=== PATIENT | female | born 2000 | race Caucasian/White ===

== ENCOUNTER 2023-06-06 10:38 | Inpatient (IN) ==
[2023-06-06 11:57] LABS: ABS Basophils 0.1 10^3/uL (0.0-0.1); ABS Eosinophils 0.2 10^3/uL (0.0-0.5); ABS Lymphocytes 2.5 10^3/uL (1.0-4.8); ABS Monocytes 0.5 10^3/uL (0.0-0.9); ABS Neutrophils 3.9 10^3/uL (1.5-7.6); ABS Nucleated RBC 0.02 10^3/ul; Eosinophil % 2.2 %; Hematocrit 43.9 % (35-45); Hemoglobin 15.2 g/dL (11.5-14.3); Mean Corpuscular Hemoglobin 30.3 pg (27-33); Mean Corpuscular Hgb Conc 34.5 g/dL (31-36); Mean Corpuscular Volume 87.6 fL (80-97); Mean Platelet Volume 9.5 fL (7.5-11.2); Nucleated Red Blood Cells % 0.3 %/100WBC (0.0-0.8); Platelet Count 289 10^3/uL (150-450); Red Blood Count 5.01 10^6/uL (3.63-4.92); Red Cell Distribution Width 12.8 % (12-17); White Blood Count 7.3 10^3/uL (3.8-11.8)
[2023-06-06 12:13] LABS: Albumin 4.5 g/dL (3.2-5.2); Albumin/Globulin Ratio 1.7 (1-3); Calcium 9.4 mg/dL (8.6-10.3); Creatinine, Serum 0.66 mg/dL (0.51-0.95); Globulin 2.7 g/dL (2-4); Potassium 4.2 mmol/L (3.5-5.0); Total Bilirubin 0.3 mg/dL (0.2-1.0); Total Protein 7.2 g/dL (6.4-8.9); eGFR CKD-EPI 127.1 (>60)
[2023-06-06 12:37] LABS: Urine Benzodiazepine Screen None Detected (None Detect); Urine Cannabinoids Screen Presumptive Positive (None Detect); Urine Opiates Screen None Detected (None Detect)
[2023-06-06 12:58] LABS: TSH Ultra Thyroid Stim Horm 2.67 mcIU/mL (0.34-5.60)
[2023-06-06] MEDS ORDERED: Al Hydrox/Mg Hydrox/Simet LIQ 30 ML UDC PO PRN (15:41)
[2023-06-06] MEDS ORDERED: DESVENLAFAXINE 50 MG PO SCH (21:00)
[2023-06-07 08:15] LABS: HDL Cholesterol 57.2 mg/dL
[2023-06-07] MEDS ORDERED: Influenza vaccine *QUAD* *2023-24* 0.5 ML SYRINGE IM ONE (09:00)
[2023-06-07] MEDS: Vitamin THERAPEUTIC TAB PO SCH (10:57)
[2023-06-07] MEDS: DESVENLAFAXINE 50 MG PO SCH (20:16)
[2023-06-07] MEDS ORDERED: DESVENLAFAXINE 50 MG PO SCH (21:00)
[2023-06-08] MEDS: Vitamin THERAPEUTIC TAB PO SCH (09:09)
[2023-06-08] MEDS: DESVENLAFAXINE 50 MG PO SCH (20:03)
[2023-06-09] MEDS: Vitamin THERAPEUTIC TAB PO SCH (08:44)
[2023-06-09 09:51] VITALS: BP 91/52
== END 2023-06-09 15:50 | disposition home or self-care (01) | DRG 754 ==
LOC: ED 10:38 → EDHOLD 14:07 → BSU 14:45
PROVIDERS: ADMIT Psychiatry & Neurology Psychiatry; ATTEND Psychiatry & Neurology Psychiatry

== ENCOUNTER 2023-06-20 20:07 | Observation (INO) ==
[2023-06-20] MEDS ORDERED: Charcoal ACTIVATED 50 GM/240 ML BTL PO ONE (20:19)
[2023-06-20] MEDS ORDERED: Ondansetron 4 mg VIAL 2 MG/ML 2 ml VIAL IV ONE (20:36)
[2023-06-20] MEDS ORDERED: Lactated Ringers 1000 ml BAG 1,000 ML IV ONE (20:36)
[2023-06-20] MEDS ORDERED: Charcoal ACTIVATED 25 GM/120 ML BTL PO ONE (21:00)
[2023-06-20 21:28] LABS: ABS Basophils 0.1 10^3/uL (0.0-0.1); ABS Eosinophils 0.2 10^3/uL (0.0-0.5); ABS Lymphocytes 2.1 10^3/uL (1.0-4.8); ABS Monocytes 0.6 10^3/uL (0.0-0.9); ABS Neutrophils 7.5 10^3/uL (1.5-7.6); ABS Nucleated RBC 0.02 10^3/ul; Eosinophil % 1.7 %; Hematocrit 42.6 % (35-45); Hemoglobin 14.7 g/dL (11.5-14.3); Lymphocyte % 19.9 %; Mean Corpuscular Hemoglobin 29.9 pg (27-33); Mean Corpuscular Hgb Conc 34.7 g/dL (31-36); Mean Corpuscular Volume 86.2 fL (80-97); Mean Platelet Volume 9.3 fL (7.5-11.2); Nucleated Red Blood Cells % 0.2 %/100WBC (0.0-0.8); Platelet Count 349 10^3/uL (150-450); Red Blood Count 4.94 10^6/uL (3.63-4.92); Red Cell Distribution Width 12.6 % (12-17); White Blood Count 10.5 10^3/uL (3.8-11.8)
[2023-06-20 21:47] LABS: Acetaminophen < 15 mcg/mL; Alcohol, S < 13 mg/dL (<13); Salicylate < 2.50 mg/dL (<30)
[2023-06-20 21:58] LABS: CO2 Carbon Dioxide 21 mmol/L (22-32); Chloride 106 mmol/L (101-111); Glucose 158 mg/dL (70-100); Sodium 139 mmol/L (135-145)
[2023-06-20 21:59] LABS: ALT 18 U/L (7-52); Albumin 4.2 g/dL (3.2-5.2); Albumin/Globulin Ratio 1.6 (1-3); Alkaline Phosphatase 66 U/L (35-149); Blood Urea Nitrogen 14 mg/dL (6-24); Calcium 9.2 mg/dL (8.6-10.3); Creatine Kinase 94 U/L (10-223); Globulin 2.7 g/dL (2-4); Total Bilirubin 0.2 mg/dL (0.2-1.0); Total Protein 6.9 g/dL (6.4-8.9); eGFR CKD-EPI 106.8 (>60)
[2023-06-20 22:03] LABS: Anion Gap 12 mmol/L (2-16); TSH Ultra Thyroid Stim Horm 1.77 mcIU/mL (0.34-5.60)
[2023-06-20 22:04] LABS: AST 26 U/L (13-39)
[2023-06-20 22:10] LABS: HCG Pregnancy < 0.60 mIU/mL
[2023-06-20 22:34] LABS: Urine Appearance Clear; Urine Bilirubin Negative (Negative); Urine Blood Negative (Negative); Urine Color Yellow; Urine Glucose Negative (Negative); Urine Ketones Negative (Negative); Urine Nitrite Negative (Negative); Urine Protein Negative (Negative); Urine Specific Gravity 1.018 (1.002-1.030); Urine Urobilinogen Negative (Negative)
[2023-06-20 22:41] LABS: Urine Benzodiazepine Screen None Detected (None Detect); Urine Cannabinoids Screen None Detected (None Detect); Urine Opiates Screen None Detected (None Detect)
[2023-06-20] MEDS ORDERED: Lorazepam PYXIS KEY PRN ×2 (22:45→23:05)
[2023-06-20] MEDS ORDERED: LORazepam 2 mg VIAL 1 ml IV PUSH ONE (22:45)
[2023-06-20] MEDS ORDERED: LORazepam 2 mg VIAL 1 ml IV PUSH PRN (23:05)
[2023-06-21] MEDS ORDERED: Ondansetron 4 mg VIAL 2 MG/ML 2 ml VIAL IV PRN (06:53)
[2023-06-21 13:50] VITALS: BP 128/72
== END 2023-06-21 14:35 ==
LOC: ED 20:07 → EDHOLD 20:07 → MEDTELE 06-21 10:02
PROVIDERS: ADMIT Hospitalist; ATTEND Student in an Organized Health Care Education/Training Program

== ENCOUNTER 2023-06-21 13:41 | Inpatient (IN) ==
[2023-06-21] MEDS ORDERED: Al Hydrox/Mg Hydrox/Simet LIQ 30 ML UDC PO PRN (13:56)
[2023-06-22] MEDS: Multivitamins/Minerals TAB PO SCH (08:37)
[2023-06-22] MEDS ORDERED: Influenza vaccine *QUAD* *2023-24* 0.5 ML SYRINGE IM ONE (09:00)
[2023-06-23] MEDS: Multivitamins/Minerals TAB PO SCH (08:26)
[2023-06-24 08:19] LABS: HDL Cholesterol 49.9 mg/dL
[2023-06-24] MEDS: Multivitamins/Minerals TAB PO SCH ×2 (09:29→09:36)
[2023-06-25] MEDS: Multivitamins/Minerals TAB PO SCH (08:56)
[2023-06-26] MEDS: Multivitamins/Minerals TAB PO SCH (09:27)
[2023-06-27] MEDS: Multivitamins/Minerals TAB PO SCH (08:25)
[2023-06-28] MEDS: Multivitamins/Minerals TAB PO SCH (08:12)
[2023-06-29] MEDS: Multivitamins/Minerals TAB PO SCH (08:29)
[2023-06-30 08:26] VITALS: BP 134/74
[2023-06-30] MEDS: Multivitamins/Minerals TAB PO SCH (09:00)
== END 2023-06-30 14:57 | disposition home or self-care (01) | DRG 812 ==
LOC: BSU 14:59
PROVIDERS: ADMIT Psychiatry & Neurology Psychiatry; ATTEND Student in an Organized Health Care Education/Training Program

== ENCOUNTER 2023-07-19 18:49 | Inpatient (IN) ==
[2023-07-19] MEDS ORDERED: Al Hydrox/Mg Hydrox/Simet LIQ 30 ML UDC PO PRN (21:15)
[2023-07-19 21:43] LABS: ABS Basophils 0.1 10^3/uL (0.0-0.1); ABS Eosinophils 0.2 10^3/uL (0.0-0.5); ABS Lymphocytes 2.4 10^3/uL (1.0-4.8); ABS Monocytes 0.7 10^3/uL (0.0-0.9); ABS Neutrophils 4.7 10^3/uL (1.5-7.6); ABS Nucleated RBC 0.01 10^3/ul; Eosinophil % 2.4 %; Hematocrit 41.7 % (35-45); Hemoglobin 14.4 g/dL (11.5-14.3); Lymphocyte % 29.9 %; Mean Corpuscular Hemoglobin 29.7 pg (27-33); Mean Corpuscular Hgb Conc 34.4 g/dL (31-36); Mean Corpuscular Volume 86.4 fL (80-97); Nucleated Red Blood Cells % 0.1 %/100WBC (0.0-0.8); Platelet Count 347 10^3/uL (150-450); Red Blood Count 4.83 10^6/uL (3.63-4.92); Red Cell Distribution Width 12.9 % (12-17); White Blood Count 8.1 10^3/uL (3.8-11.8)
[2023-07-19 21:49] LABS: Urine Appearance Cloudy; Urine Bilirubin Negative (Negative); Urine Blood Negative (Negative); Urine Color Yellow; Urine Glucose Negative (Negative); Urine Ketones Negative (Negative); Urine Nitrite Negative (Negative); Urine Protein Negative (Negative); Urine Specific Gravity 1.015 (1.002-1.030); Urine Urobilinogen Negative (Negative)
[2023-07-19 22:02] LABS: ALT 19 U/L (7-52); AST 18 U/L (13-39); Albumin 4.1 g/dL (3.2-5.2); Albumin/Globulin Ratio 1.5 (1-3); Alkaline Phosphatase 61 U/L (35-149); Anion Gap 7 mmol/L (2-16); Blood Urea Nitrogen 17 mg/dL (6-24); CO2 Carbon Dioxide 26 mmol/L (22-32); Calcium 9.6 mg/dL (8.6-10.3); Chloride 105 mmol/L (101-111); Creatinine, Serum 0.81 mg/dL (0.51-0.95); Globulin 2.7 g/dL (2-4); Glucose 109 mg/dL (70-100); Potassium 3.6 mmol/L (3.5-5.0); Sodium 138 mmol/L (135-145); Total Bilirubin 0.3 mg/dL (0.2-1.0); Total Protein 6.8 g/dL (6.4-8.9); eGFR CKD-EPI 105.2 (>60)
[2023-07-19 22:05] LABS: Urine Benzodiazepine Screen None Detected (None Detect); Urine Cannabinoids Screen None Detected (None Detect); Urine Opiates Screen None Detected (None Detect)
[2023-07-19 22:09] LABS: HCG Pregnancy < 0.60 mIU/mL
[2023-07-19 22:19] LABS: Acetaminophen < 15 mcg/mL; Alcohol, S < 13 mg/dL (<13); Salicylate < 2.50 mg/dL (<30)
[2023-07-19 22:36] LABS: TSH Ultra Thyroid Stim Horm 5.21 mcIU/mL (0.34-5.60)
[2023-07-20 10:15] LABS: Vitamin B12 286 pg/mL (180-914)
[2023-07-20 10:18] LABS: Vitamin D Total 25(OH) 17.4 ng/mL (20-50)
[2023-07-20] MEDS: Vitamin THERAPEUTIC TAB PO SCH (13:36)
[2023-07-21] MEDS: Cholecalciferol (VIT D3) 1,000 unit TAB PO SCH (09:30)
[2023-07-28 10:44] VITALS: BP 123/74
== END 2023-07-28 16:00 | disposition home or self-care (01) | DRG 751 ==
LOC: ED 18:49 → BSU 21:28
PROVIDERS: ADMIT Psychiatry & Neurology Psychiatry; ATTEND Psychiatry & Neurology Psychiatry